=== PATIENT | male | born 1950 | race Caucasian/White ===

== ENCOUNTER → 2017-01-09 | Outpatient (CLI) | payer MEDICARE ==
[~2017-01-09] MED LIST: FENTANYL PF 100 MCG/2ML IVPush ONE; LIDOCAINE 1%, 20ML SQ ONE; MIDAZOLAM 1 MG/ML, 5ML IVPush ONE
== END | disposition home or self-care (01) ==
LOC: ROC 09:35
PROVIDERS: ATTEND Radiology Radiation Oncology
DX: C61 Malignant neoplasm of prostate (principal)
CPT/HCPCS: 55876; 76942; 77332; 99156; A4648; J2250; J3010; J3490

== ENCOUNTER → 2017-05-21 | Outpatient (CLI) | payer MEDICARE | LOC: ROC 07:47 | PROVIDERS: ATTEND Radiology Radiation Oncology | DX: C61 Malignant neoplasm of prostate (principal); Z79.82 Long term (current) use of aspirin | CPT/HCPCS: G0463 ==

== ENCOUNTER → 2017-12-17 | Outpatient (CLI) | payer MEDICARE | END | disposition home or self-care (01) | LOC: CFH 07:24 | PROVIDERS: ATTEND Radiology Radiation Oncology | DX: Z08 Encounter for follow-up examination after completed treatment for malignant neoplasm (principal); C61 Malignant neoplasm of prostate; Z85.46 Personal history of malignant neoplasm of prostate | CPT/HCPCS: 36415; 84153 ==

== ENCOUNTER → 2017-12-20 | Outpatient (CLI) | payer MEDICARE | END | disposition home or self-care (01) | LOC: ROC 08:22 | PROVIDERS: ATTEND Radiology Radiation Oncology | DX: C61 Malignant neoplasm of prostate (principal) | CPT/HCPCS: G0463 ==

== ENCOUNTER → 2018-05-30 | Outpatient (CLI) | payer MEDICARE ==
[2018-05-30 14:59] LABS: ALBUMIN 3.7 g/dL (3.4-5.0); ANION GAP 4 mmol/L (5-15); CHLORIDE 107 mmol/L (98-107)
[2018-05-30 15:09] LABS: ALANINE AMINOTRANSFERASE 22 U/L (12-78); ALKALINE PHOSPHATASE 97 U/L (45-117); BILIRUBIN,TOTAL 0.5 mg/dL (0.2-1.0); CHOL/HDL RATIO 4.6; CHOLESTEROL, TOTAL 237 mg/dL (140-239); CREATININE 0.88 mg/dL (0.7-1.3); HDL CHOL % 22 % (26-37); HDL CHOLESTEROL (DIRECT) 51 mg/dL (40-60); LDL CHOLESTEROL,CALCULATED 127 mg/dL (54-169); LDL/HDL RATIO 2.5 (0.5-3.0); T4 (THYROXINE) 10.3 mcg/dL (4.5-12.1); TOTAL PROTEIN 7.3 g/dL (6.4-8.2); TRIGLYCERIDES 297 mg/dL (50-200); VLDL CHOLESTEROL 59 mg/dL (0-25)
== END | disposition home or self-care (01) ==
LOC: CFH 09:08
PROVIDERS: ATTEND Internal Medicine Cardiovascular Disease
DX: E78.2 Mixed hyperlipidemia (principal)
CPT/HCPCS: 36415; 80053; 80061; 84436; 84443; 84481

== ENCOUNTER 2018-10-01 07:15 | Outpatient (CLI) | payer MEDICARE, OTHER | END 2018-10-01 23:59 | disposition home or self-care (01) | LOC: CFH 07:15 | PROVIDERS: ATTEND Radiology Radiation Oncology | DX: Z08 Encounter for follow-up examination after completed treatment for malignant neoplasm (principal); R97.20 Elevated prostate specific antigen [PSA]; Z85.46 Personal history of malignant neoplasm of prostate | CPT/HCPCS: 36415; 84153 ==

== ENCOUNTER 2018-10-07 09:03 | Outpatient (CLI) | payer MEDICARE, OTHER | END 2018-10-07 23:59 | disposition home or self-care (01) | LOC: ROC 09:03 | PROVIDERS: ATTEND Radiology Radiation Oncology | DX: Z08 Encounter for follow-up examination after completed treatment for malignant neoplasm (principal); Z85.46 Personal history of malignant neoplasm of prostate | CPT/HCPCS: G0463 ==

== ENCOUNTER 2019-10-01 07:34 | Outpatient (CLI) | payer MEDICARE, OTHER | END 2019-10-01 23:59 | disposition home or self-care (01) | LOC: CFH 07:34 | PROVIDERS: ATTEND Family Medicine | DX: Z08 Encounter for follow-up examination after completed treatment for malignant neoplasm (principal); C61 Malignant neoplasm of prostate; R97.20 Elevated prostate specific antigen [PSA]; Z85.46 Personal history of malignant neoplasm of prostate | CPT/HCPCS: 36415; 84153 ==

== ENCOUNTER 2019-10-13 08:20 | Outpatient (CLI) | payer MEDICARE, OTHER | END 2019-10-13 23:59 | disposition home or self-care (01) | LOC: ROC 08:20 | PROVIDERS: ATTEND Radiology Radiation Oncology | DX: C61 Malignant neoplasm of prostate (principal) | CPT/HCPCS: G0463 ==